=== PATIENT | female | born 1980 | race Two or more races ===

== ENCOUNTER → 2019-03-13 | Outpatient (CLI) | payer OTHER ==
[~2019-03-13] MED LIST: GADOTERATE 7.5 MMOL/15ML VIAL. IVP ONE
--- NOTE | 2019-03-13 15:46 | RAD ---
MRI of the abdomen without and with contrast 03/13/2019 CLINICAL HISTORY: 1 cm hypoechoic lesion in the right lobe of the liver seen on outside ultrasound study. MRI was recommended for further evaluation. TECHNIQUE: Unenhanced in and out of phase T1-weighted axial, diffusion-weighted axial and fat saturated T2-weighted axial and coronal images of the abdomen were obtained. After the intravenous administration of 15 cc of Dotarem, enhanced fat saturated T1-weighted axial images of the abdomen were obtained using arterial, portal venous and delayed phases contrast enhancement. Additionally delayed postcontrast T1-weighted enhanced coronal images of the abdomen were obtained. FINDINGS: The liver is normal in size measuring 16.1 cm in length. Areas of increased signal intensity are seen involving the liver on the T1-weighted images consistent with areas of fatty infiltration. No definite liver lesion is seen on the precontrast images. On the postcontrast images an oval-shaped area of enhancement is seen involving the right lobe of the liver which measures 1 cm in greatest diameter. This most likely represents a hemangioma. No additional abnormality of the liver is seen. The pancreas, spleen, adrenal glands and kidneys are within normal limits. The abdominal aorta tapers normally. The gallbladder is slightly contracted. No free fluid is seen. There is no evidence of bowel obstruction. IMPRESSION: 1 cm well-defined enhancing lesion is seen involving the right lower liver which most likely represents a hemangioma. There is evidence of fatty infiltration of the liver. No additional abnormality is seen. Electronically signed by: Luis Tello MD (03/13/2019 3:43 PM) [id number]
== END | disposition home or self-care (01) ==
LOC: MRI 09:48
PROVIDERS: ATTEND Family Medicine
DX: K76.0 Fatty (change of) liver, not elsewhere classified (principal); K76.89 Other specified diseases of liver; K82.8 Other specified diseases of gallbladder; I10 Essential (primary) hypertension; E11.9 Type 2 diabetes mellitus without complications; Z95.0 Presence of cardiac pacemaker
CPT/HCPCS: 74183; A9575